=== PATIENT | female | born 1955 ===

== ENCOUNTER 2017-01-11 16:45 | Emergency (ER) | payer MEDICAID ==
[2017-01-11 17:58] VITALS: BMI 21.2
[2017-01-11 18:02] VITALS: BP 108/70; PULSE 86; RESP 18; TEMP 98.1; O2SAT 99
--- NOTE | 2017-01-11 18:20 | C.PDOC ---
History Of Present Illness 61 y/o female presents to ED with complaint of rash to right thigh for 10 days. Patient states the rash has been improving over the last 2 days. Notes history of chicken pox. Denies fevers. Patient reports liquid filled bumps originally, now resolved. Time Seen by Provider: 01/11/17 18:05 Chief Complaint (Nursing): Abnormal Skin Integrity History Per: Patient History/Exam Limitations: no limitations Onset/Duration Of Symptoms: Days Current Symptoms Are (Timing): Better Location Of Injury: Right: Thigh, Anterior: Thigh Quality Of Symptoms: Itching. denies: Draining Recent travel outside of the [place]: No Past Medical History Reviewed: Historical Data, Nursing Documentation, Vital Signs Vital Signs: Last Vital Signs Temp 98.1 F 01/11/17 17:58 Pulse 86 01/11/17 17:58 Resp 18 01/11/17 17:58 BP 108/70 01/11/17 17:58 Pulse Ox 99 01/11/17 22:56 - Medical History PMH: Back Problems, Depression Family History: States: Unknown Family Hx - Social History Hx Alcohol Use: Yes Hx Substance Use: No - Immunization History Hx Tetanus Toxoid Vaccination: Yes (2014) Hx Influenza Vaccination: No Hx Pneumococcal Vaccination: No Review Of Systems Except As Marked, All Systems Reviewed And Found Negative. Constitutional: Negative for: Fever, Chills Gastrointestinal: Negative for: Nausea, Vomiting Skin: Positive for: Rash Neurological: Negative for: Weakness, Numbness Physical Exam - Physical Exam Appears: Non-toxic, No Acute Distress Skin: Warm, Dry, Rash (erythematous macules to right upper thigh, does not cross midline, follows dermatome ) Head: Atraumatic, Normacephalic Eye(s): bilateral: Normal Inspection, EOMI Nose: Normal Oral Mucosa: Moist Chest: Symmetrical, No Tenderness Cardiovascular: Rhythm Regular, No Murmur Respiratory: Normal Breath Sounds, No Rales, No Rhonchi, No Wheezing Back: Normal Inspection Extremity: Normal ROM, Capillary Refill (< 2 sec. ), Other (see skin exam) Neurological/Psych: Oriented x3, Normal Speech, Normal Cognition ED Course And Treatment O2 Sat by Pulse Oximetry: 99 (RA) Pulse Ox Interpretation: Normal Disposition - Disposition Disposition: HOME/ ROUTINE Disposition Time: 18:18 Condition: STABLE Additional Instructions: Follow up with your primary medical doctor or clinic in 2-5 days for further evaluation. Take medications as prescribed. Return to the emergency department at any time if symptoms persist or worsen. 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 - Scribe Statement The provider has reviewed the documentation as recorded by the Ronni Huffman Provider Scribe Attestation: All medical record entries made by the Ronni were at my direction and personally dictated by me. I have reviewed the chart and agree that the record accurately reflects my personal performance of the history, physical exam, medical decision making, and the department course for this patient. I have also personally directed, reviewed, and agree with the discharge instructions and disposition.
== END 2017-01-11 18:50 | disposition home or self-care (01) ==
LOC: C.ER 16:45
DX: B02.9 Zoster without complications (principal)

== ENCOUNTER 2018-04-12 23:22 | Emergency (ER) | payer SELFPAY ==
[2018-04-12 23:22] VITALS: BMI 21.2
[2018-04-12 23:40] VITALS: BP 113/76; PULSE 90; TEMP 98.2; O2SAT 98
[2018-04-13] MEDS ORDERED: Bacitracin 500 Units/gm Oint Foilpak UD TOP ONE (00:10)
[2018-04-13] MEDS ORDERED: Lidocaine 1% w Epi 1:100,000 Inj INJ ONE (00:10)
[2018-04-13] MEDS ORDERED: Bacitracin 500 Units/gm Oint Foilpak UD ONE (00:23)
[2018-04-13] MEDS ORDERED: Amoxicillin-Clav 875-125 mg Tab PO STA (00:46)
--- NOTE | 2018-04-13 00:47 | C.PDOC ---
History Of Present Illness 62 year old female presents to the ER after sustaining a dog bite VOCATIONAL COUNSELOR. Patient states she was trying to put her friend's dog into the car when she got bit. Patient reports the dog is up to date with all vaccinations and she is up to date with tetanus. Denies weakness, numbness, or any other injury. Time Seen by Provider: 04/12/18 23:44 Chief Complaint (Nursing): Bite History Per: Patient History/Exam Limitations: no limitations Onset/Duration Of Symptoms: Hrs Current Symptoms Are (Timing): Still Present Location Of Injury: Right: Hand Recent travel outside of the [place]: No - Animal Bite Description Of The Attack: Other (Attempting to place dog in car) Description Of The Animal: Other (Friend's Dog) Reports Animal Appears: Well Reports Animal's Immunization Status: UTD Past Medical History Reviewed: Historical Data, Nursing Documentation, Vital Signs Vital Signs: Last Vital Signs Temp 98.2 F 04/12/18 23:38 Pulse 90 04/12/18 23:38 Resp 20 04/13/18 00:57 BP 113/76 04/12/18 23:38 Pulse Ox 98 04/13/18 03:20 - Medical History PMH: Back Problems, Depression Family History: States: Unknown Family Hx - Social History Hx Alcohol Use: Yes Hx Substance Use: No - Immunization History Hx Tetanus Toxoid Vaccination: Yes (2014) Hx Influenza Vaccination: No Hx Pneumococcal Vaccination: No Review Of Systems Skin: Positive for: Other (Bite) Neurological: Negative for: Weakness, Numbness Physical Exam - Physical Exam Appears: Non-toxic, No Acute Distress Skin: Warm, Dry Head: Atraumatic, Normacephalic Eye(s): bilateral: Normal Inspection, EOMI Nose: Normal Oral Mucosa: Moist Neck: Normal ROM, Supple Chest: Symmetrical Respiratory: No Accessory Muscle Use Extremity: Normal ROM, Capillary Refill (<2 seconds), Other (3cm irregular laceration to ulnar aspect of right palm) Extremity: Bilateral: Normal Color And Temperature Pulses: Left Radial: Normal, Right Radial: Normal Neurological/Psych: Oriented x3, Normal Speech, Normal Motor (5/5 against resistance), Normal Sensation ED Course And Treatment O2 Sat by Pulse Oximetry: 98 (Room air) Pulse Ox Interpretation: Normal Progress Note: Patient offered medication for pain but refused. Offered XR, pt declined. Patient tolerated laceration repair without any difficulty, she was given proper wound care instructions, advised to follow up for suture removal and return precautions given. Laceration - Laceration Repair Right hand Wound Length (In cm): 3 Description Of Wound: Irregular Wound Cleansed With: Betadine, Sterile Saline Anesthesia: Lidocaine 1% Wound Examination: Irrigated With Saline, No FB With Wound Exploration, No Tendon Injury With Wound Exploration Wound Closure: Suture (x6, loose) Suture Technique And Material Used: Nylon (5-0) Disposition - Disposition Disposition: HOME/ ROUTINE Disposition Time: 00:46 Condition: STABLE Additional Instructions: Watch for signs of infection including redness swelling and discharge. Wound check in 2 days. Suture removal in 7-8 days. Prescriptions: Amoxicillin/Clavulanate [Augmentin 875 MG-125 MG] 1 tab PO BID #14 tab Instructions: Animal Bites (DC) Forms: [employer] (Lithuanian) - Clinical Impression Clinical Impression: Animal bite wound - PA / APPLICATOR SPRAYER / Resident Statement MD/DO has reviewed & agrees with the documentation as recorded. - Scribe Statement The provider has reviewed the documentation as recorded by the Scribsujatha Miller All medical record entries made by the Matildeibsujatha were at my direction and personally dictated by me. I have reviewed the chart and agree that the record accurately reflects my personal performance of the history, physical exam, medical decision making, and the department course for this patient. I have also personally directed, reviewed, and agree with the discharge instructions and disposition.
[2018-04-13] MEDS ORDERED: Amoxicillin-Clav 875-125 mg Tab PO ONE (00:54)
[2018-04-13 00:59] VITALS: RESP 20
== END 2018-04-13 00:57 | disposition home or self-care (01) ==
LOC: C.ER 23:22
DX: S61.451A Open bite of right hand, initial encounter (principal); W54.0XXA Bitten by dog, initial encounter; Y92.89 Other specified places as the place of occurrence of the external cause